=== PATIENT | female | born 1940 | race Caucasian/White ===

== ENCOUNTER 2016-11-19 16:15 | Observation (INO) | payer MEDICARE, BC ==
--- NOTE | 2016-11-19 16:30 | ED Physician Documentation ---
General Adult - HISTORIAN Historian: patient - HPI Chief Complaint: General Adult Onset: hours Timing: still present Severity: mild Modifying Factors: none Context: no pricipitating factors noted. Quality: just does not feel right Further Comments: yes (Patient states that she was walking in [place] and started to feel dizzy and lightheaded. Has not felt well for most of the day. No previous history of heart problems. No SOB or dyspnea beyond baseline.) - ROS CONST: no problems. denies: fever - PAST HX Past History: COPD, other (seizure disorder) Surgeries/Procedures: cholecystectomy, hysterectomy, other (ORIF hip fx, pelvic fracture repair, multiple surgeries on RLE) Allergies/Adverse Reactions: Allergies Allergy/AdvReac Type Severity Reaction Status Date / Time adhesive Allergy Mild Rash Verified 11/19/16 17:00 Home Medications: Ambulatory Orders Medication Instructions Recorded Levothyroxine Sodium 150 mcg PO DAILY u2 04/02/13 Alprazolam [XANAX] 0.25 mg PO TID PRN 11/19/16 Hydrochlorothiazide [Hydrodiuril] 12.5 mg PO DAILY 11/19/16 - SOCIAL HX Smoking History: non-smoker, quit greater than 1 year (5 years ago) Alcohol Use: none Drug Use: none - FAMILY HX Family History: No - VITAL SIGNS Vital Signs: Vital Signs Temp Pulse Resp BP Pulse Ox 168/94 06/07/13 07:41 - REVIEWED ASSESSMENTS Nursing Assessment Reviewed: Yes Vitals Reviewed: Yes Progress - EKG/XRAY/CT Comments: A fib with RVR, mild ST depression V3-V5 General Adult Physical Exam - PHYSICAL EXAM GENERAL APPEARANCE: mild distress NECK: normal inspection, thyroid normal, supple. No: lymphadenopathy RESPIRATORY: no resp distress, chest non-tender, breath sounds normal. No: wheezes, rales CVS: equal pulses, tachycardia (150-160 appears to be A fib) ABDOMEN: soft, no organomegaly, normal bowel sounds, no abdominal bruit, no distension, non-tender BACK: normal inspection SKIN: warm/dry, normal color EXTREMITIES: non-tender, edema (trace) NEURO: oriented X3, mood/affect nml, cognition normal Discharge Clincal Impression: Atrial fibrillation with RVR Home Medications: Ambulatory Orders Levothyroxine Sodium 150 mcg PO DAILY u2 04/02/13 Alprazolam [XANAX] 0.25 mg PO TID PRN 11/19/16 Hydrochlorothiazide [Hydrodiuril] 12.5 mg PO DAILY 11/19/16 Condition: Stable Disposition: ADMITTED INPATIENT Decision to Admit: NO Date of Decison to Admit: 11/19/16 Decision Time: 20:56
[2016-11-19] MEDS ORDERED: DILTIAZEM HCL 25 MG/ 5ML VIAL ONE (16:31)
[2016-11-19] MEDS ORDERED: DILTIAZEM HCL 25 MG/ 5ML VIAL IVP ONE (16:33)
[2016-11-19] MEDS ORDERED: DILTIAZEM HCL 125 MG in 0.9 % SODIUM CHLORIDE 100 ML IV STA ×2 (16:48→21:27)
[2016-11-19] MEDS ORDERED: 0.9 % SODIUM CHLORIDE 100 ML IV ONE (16:50)
[2016-11-19] MEDS ORDERED: DILTIAZEM HCL 125 MG/25ML VIAL ONE (16:50)
[2016-11-19 16:55] LABS: BASOPHILS % 0.3 (0.0-1.5); EOSINOPHILS % 3.9 % (0.0-6.8); MEAN CORPUSCULAR HEMOGLOBIN 30.5 pg (28.0-34.0); MEAN CORPUSCULAR VOLUME 93.6 fl (80.0-100.0); MONOCYTES % 7.8 % (0.0-11.0); NEUTROPHILS # 3.3 # k/uL (1.4-7.7)
[2016-11-19 17:06] LABS: eGFR (African) > 60; eGFR (Non-African) > 60
[2016-11-19] MEDS ORDERED: 0.9 % SODIUM CHLORIDE 1,000 ML IV ONE (17:47)
[2016-11-19] MEDS: 0.9 % SODIUM CHLORIDE 1,000 ML IV SCH (17:57)
--- NOTE | 2016-11-19 20:08 | Diagnostic Imaging Report ---
CABRERA RM [facility] [address] [facility].[address] [address] Report Submission Date: Nov 19, 2016 5:32:55 PM CDT Patient Study Name: PASCUAL PEREZ Date: Nov 19, 2016 5:08:23 PM CDT Modality Type: CR Gender: F Description: CHEST : 38 Institution: [facility] Physician: CABRERA RM Chest 2 views History: Tachycardia Findings: Multiple thoracic compression deformities and a midthoracic vertebroplasty are observed. The lungs are hyperinflated. Mild right mid lobe infiltrate or atelectasis is present, of uncertain chronicity. Heart size is normal. No pleural effusions are observed. Impression: 1. Mild right mid lobe infiltrate vs atelectasis of uncertain chronicity. 2. Hyperinflation. 3. Multiple thoracic compression deformities. Electronically signed on Nov 19, 2016 5:32:55 PM CDT by: Alfredo FARAH
--- NOTE | 2016-11-19 20:11 | Diagnostic Imaging Report ---
CABRERA RM [facility] [address] [facility].[address] [id number] Report Submission Date: Nov 19, 2016 7:35:26 PM CDT Patient Study Name: PASCUAL PEREZ Date: Nov 19, 2016 7:04:15 PM CDT Modality Type: CT\SR Gender: F Description: CT ANGIOGRAPHY CHEST 7 : 39 Institution: [facility] Physician: CABRERA RM CT angiography of the chest History: Elevated d-dimer and tachycardia Findings: Transverse chest sections are obtained after 94 mL intravenous omnipaque 350 from which multiplanar 3 dimensional maximum intensity projections are obtained. The pulmonary arteries are patent without acute pulmonary embolism. Mild atherosclerosis is observed. The distal descending aorta measures 3.4 cm in diameter. Calcified granulomas are noted. Heart size is normal. Moderate emphysema is present without infiltrate or pleural effusion. Numerous mild thoracolumbar compression deformities are present. T6 vertebroplasty is noted. Impression: 1. No evidence of acute pulmonary embolism. 2. Emphysema, numerous chronic appearing thoracolumbar compression deformities, T6 vertebroplasty, and old granulomatous disease noted. Electronically signed on Nov 19, 2016 7:35:26 PM CDT by: Alfredo FARAH
[2016-11-19] MEDS ORDERED: ALPRAZOLAM 0.5 MG TABLET PO PRN (21:11)
[2016-11-19] MEDS ORDERED: ALBUTEROL IH SCH (21:15)
--- NOTE | 2016-11-19 21:18 | History and Physical Report ---
History of Present Illnes - History of Present Illness Reason for Visit: Weakness History of Present Illness: Patient was in [place] today when she started "feeling funny." Couldn't put a finger on what was wrong so came to ER. Found to be in Afib with RVR. Reports her BP has been elevated up to 190/[address] Woodard put her on a new BP Med ( ? HCtZ). BP dropped to 100's. Has had several episodes in past few weeks of feeling light headed. Did not check BP. No CP with this episode. Reports no change in her chronic SOB. Has been feeling good otherwise. 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 Vertebuloplasty x 2) - Past Family History Mother Family History: CVA, Father Family History: , Other (alcohol addiction) Sister 1 Family History: Other (Afib) - Past Social History Smoke: Quit (2011 after 55 years of smoking) Alcohol: None Drugs: None Lives: Alone - Health Maintenance Health Maintenance: Cholesterol, Pneumococcal Vaccine. denies: Influenza Vaccine Influenza Vaccine: No (refuses these.) Pneumonia Vaccine: Yes Resuscitation Status: Resusciation Status Resuscitation Status Full Code Review of Systems - Review of Systems Constitutional: Weakness. negative: Fever Eyes: negative: pain ENT: negative: Ear Pain, Nose Discharge Respiratory: Shortness of Breath. negative: Cough Cardiovascular: Light Headedness. negative: Chest Pain, Palpitations, Orthopnea , Paroxysmal Noc. Dyspnea, Edema Gastrointestinal: negative: Nausea, Vomiting, Abdominal Pain, Diarrhea, Constipation Genitourinary: negative: Dysuria, Frequency Musculoskeletal: negative: Neck Pain Skin: negative: Rash Neurological: Weakness - Medications/Allergies Allergies/Adverse Reactions: Allergies Allergy/AdvReac Type Severity Reaction Status Date / Time adhesive Allergy Mild Rash Verified 11/19/16 17:00 Home Medications: Home Medications Alprazolam [XANAX] 0.25 mg PO TID PRN 11/19/16 Hydrochlorothiazide [Hydrodiuril] 12.5 mg PO DAILY 11/19/16 Current Inpatient Medications: Current Inpatient Medications Alprazolam (Xanax) 0.25 mg PO TID PRN PRN Reason: Anxiety Stop: 12/03/16 21:10 Enoxaparin Sodium (Lovenox) 40 mg SQ QD MICHAEL Stop: 12/03/16 21:59 Famotidine (Pepcid) 20 mg PO 717 MICHAEL Diltiazem HCl 125 mg/ Sodium (Chloride) 125 mls @ 10 mls/hr IV 1T STA PRN Reason: Protocol Stop: 11/20/16 05:17 Last Admin: 11/19/16 16:55 Dose: 10 ml/hr, 10 mls/hr Sodium Chloride (Normal Saline) 1,000 mls @ 100 mls/hr IV .Q10H MICHAEL Last Admin: 11/19/16 17:57 Dose: 100 mls/hr Levothyroxine Sodium (Synthroid) 100 mcg PO 0700 MICHAEL Levothyroxine Sodium (Synthroid) 50 mcg PO 0700 [facility] Miscellaneous (Hydrochlorothiazide [Hydrodiuril]) 12.5 mg PO DAILY MICHAEL Phenytoin Sodium (Dilantin) 300 mg PO DAILY [facility] Exam - Exam General: Alert, Oriented to Person, Oriented to Place, Oriented to Time, Cooperative, No acute distress HEENT: Atraumatic, PERRLA, EOMI, Mouth Mucous membr. moist/Mark Neck: Normal Range of Motion Lungs: Clear to auscultation, Normal air movement, Speaks full Sentences Cardiovascular: Regular rate, PVC Abdomen: Normal bowel sounds, Soft, No tenderness Integumentary: Normal Extremities: No edema Neurological: Normal gait, Normal speech, Strength Equal Bilat Psych/Mental Status: Mental status NL, Mood NL, Appropriate Affect, Intact Judgment Assessment/Plan - Assessment/Plan (1) Hypertension Status: Acute Current Visit: Yes Qualifiers: Hypertension type: essential hypertension Qualified Code(s): I10 - Essential (primary) hypertension Plan: Will hold HCTZ at this time as we plan to do Cardizem. (2) Afib Status: Acute Current Visit: Yes Qualifiers: Atrial fibrillation type: unspecified Qualified Code(s): I48.91 - Unspecified atrial fibrillation Plan: Patient started on diltiazem drip in ER. She has converted to NSR with rate in the 70's. Will give cardizem CD 120 mg po and decrease rate to 5 ml/hr. Plan to titrate off in several hours if tolerated. [id number] score is 2 which should be anticoagulated. Patient considering Xarelto/Eliquis. Will discuss more in the morning. Plan cardiology consult with ECHO as outpatient. (3) Chronic obstructive lung disease Status: Chronic Current Visit: No (4) Gastroesophageal reflux disease Status: Chronic Current Visit: No Plan: Patient normally doesn't take ranitidine but resolves GERD with saltine. Will do H2 jonathan here. (5) Hypothyroidism Status: Chronic Current Visit: No Plan: TSH pending but patient reports recent labs ok. However the only TSH I can find is from 02/26 and was 0.008. VTE Assessment - RISK FACTOR SCORE VTE RISK FACTOR SCORES: AGE OVER 60 YEARS, ANTICIPATED BED CONFINEMENT OR IMMOBILIZATION > 24 HOURS - RISK VTE MODERATE RISK: SCORE OF 2 (RISK PROXIMAL DVT 2-4%) PROPHYAXIS NEEDED
[2016-11-19 21:43] VITALS: BMI 25.7
[2016-11-19] MEDS ORDERED: ENOXAPARIN SODIUM 40 MG/0.4 ML DISP.SYRIN SQ SCH (22:00)
[2016-11-19] MEDS ORDERED: ENOXAPARIN SODIUM 40 MG/0.4 ML DISP.SYRIN SQ ONE (23:25)
[2016-11-20] MEDS ORDERED: 0.9 % SODIUM CHLORIDE 1,000 ML IV ONE (02:38)
[2016-11-20] MEDS ORDERED: LEVOTHYROXINE SODIUM 25 MCG TABLET ONE (02:48)
[2016-11-20] MEDS ORDERED: DILTIAZEM HCL 120 MG CAP.ER.24H ONE (02:49)
[2016-11-20] MEDS ORDERED: PHENYTOIN SODIUM EXTENDED 100 MG CAPSULE PO ONE (02:49)
[2016-11-20] MEDS ORDERED: FAMOTIDINE 20 MG TABLET ONE (02:49)
[2016-11-20] MEDS ORDERED: LEVOTHYROXINE SODIUM 100 MCG TABLET PO ONE (02:50)
[2016-11-20] MEDS: 0.9 % SODIUM CHLORIDE 1,000 ML IV SCH (03:12)
[2016-11-20 05:23] LABS: APPEARANCE,URINE CLEAR (CLEAR); COLOR,URINE YELLOW (YELLOW); OCCULT BLOOD,URINE NEGATIVE (NEGATIVE); UROBILINOGEN URINE 0.2 Eu (0.2-1.0)
[2016-11-20] MEDS ORDERED: LEVOTHYROXINE SODIUM 25 MCG TABLET PO SCH (07:00)
[2016-11-20] MEDS ORDERED: LEVOTHYROXINE SODIUM 100 MCG TABLET PO SCH (07:00)
[2016-11-20] MEDS ORDERED: FAMOTIDINE 20 MG TABLET PO SCH (07:00)
[2016-11-20] MEDS ORDERED: DILTIAZEM HCL 120 MG CAP.ER.24H PO SCH (09:00)
[2016-11-20] MEDS ORDERED: HYDROCHLOROTHIAZIDE 12.5 MG PO SCH (09:00)
[2016-11-20] MEDS ORDERED: PHENYTOIN SODIUM EXTENDED 100 MG CAPSULE PO SCH (09:00)
[2016-11-20 10:50] VITALS: BP 143/82
[2016-11-20] MEDS ORDERED: LEVALBUTEROL HCL 1.25 MG/3 ML AMPUL.NEB NEB ONE ×2 (11:02→11:09)
--- NOTE | 2016-11-20 11:53 | Discharge Summary ---
Discharge Summary - Discharge Sumary History of Present Illness: Patient was in [place] today when she started "feeling funny." Couldn't put a finger on what was wrong so came to ER. Found to be in Afib with RVR. Reports her BP has been elevated up to 190/[address] Woodard put her on a new BP Med ( ? HCtZ). BP dropped to 100's. Has had several episodes in past few weeks of feeling light headed. Did not check BP. No CP with this episode. Reports no change in her chronic SOB. Has been feeling good otherwise. Condition at Discharge: Stable Home Medications: Ambulatory Orders Medication Instructions Recorded Levothyroxine Sodium 150 mcg PO DAILY u2 04/02/13 Alprazolam [XANAX] 0.25 mg PO TID PRN 11/19/16 Diltiazem HCl [Cardizem CD] 120 mg PO DAILY #30 cap.er.24h 11/20/16 Consultations this Visit: None Procedures this Visit: None Allergies/Adverse Reactions: Allergies Allergy/AdvReac Type Severity Reaction Status Date / Time adhesive Allergy Mild Rash Verified 11/19/16 17:00 Patient Problems: Current Active Problems Problem Status Onset Afib Acute Atrial fibrillation with RVR Acute Hypertension Acute Discharge Summary: Patient presented to ER with Afib and RVR. Converted to NSR and normal rate with IV diltiazem. Came to the floor at 10ml drip. This was reduced to 5ml and cardizem CD 120 mg po started. Within 3 hours, HR still in the 60's so diltiazem drip was stopped. Patient remained overnight in NSR and rate in the 60's. HCTZ has been stopped. Patient to f/u with PCP, Dr. Woodard tomorrow to discuss cardiology consult and anticoagulation. CHADS2-VASC score of 2 so anticoagulation recommended. She was given a sample of Xarelto 20 mg to take daily with largest meal until sees PCP to see what her insurance will cover. She was given xopenex HFN for COPD while in hospital. Will discuss with PCP about changing to this as the albuterol at home makes her anxious and now with the Afib and RVR her insurance may cover it. Discharged home in good condition. Hospital Course: Discharge Dx: New onset Afib with RVR. HTN. COPD. Disposition - home
== END 2016-11-20 13:10 | disposition home or self-care (01) ==
LOC: ED 16:15 → EDSTATUS 16:18 → SOUTH 20:45
PROVIDERS: ADMIT Family Medicine; ATTEND Family Medicine
DX: I48.91 Unspecified atrial fibrillation (principal); I10 Essential (primary) hypertension; J44.9 Chronic obstructive pulmonary disease, unspecified
CPT/HCPCS: 71020; 71275; 80053; 80185; 81002; 84443; 84484; 85025; 85379; 93005; G0378; J1650; J3490; J7030; J7614; Q9966; 96361; 96374; 96376; 99284; S1016

== ENCOUNTER 2018-09-19 14:40 | Outpatient (CLI) | payer MEDICARE, BC ==
[2018-09-19 15:53] LABS: BASOPHILS % 0.3 (0.0-1.5); EOSINOPHILS % 2.6 % (0.0-6.8); MEAN CORPUSCULAR HEMOGLOBIN 30.8 pg (28.0-34.0); MONOCYTES % 6.4 % (0.0-11.0)
[2018-09-19 15:54] LABS: NEUTROPHILS # 4.4 # k/uL (1.4-7.7)
[2018-09-19 16:00] LABS: eGFR (Non-African) > 60
[2018-09-19 16:01] LABS: APPEARANCE,URINE CLOUDY (CLEAR); COLOR,URINE YELLOW (YELLOW); OCCULT BLOOD,URINE TRACE-LYSED (NEGATIVE); PH URINE 5.5 (5.0 - 8.0); UROBILINOGEN URINE 0.2 Eu (0.2-1.0)
== END 2018-09-19 14:42 ==
LOC: LAB 14:40
PROVIDERS: ATTEND Family Medicine
DX: A41.02 Sepsis due to Methicillin resistant Staphylococcus aureus (principal); J96.21 Acute and chronic respiratory failure with hypoxia; F41.9 Anxiety disorder, unspecified; R41.0 Disorientation, unspecified; J18.9 Pneumonia, unspecified organism; I48.0 Paroxysmal atrial fibrillation; N39.0 Urinary tract infection, site not specified; E03.9 Hypothyroidism, unspecified
CPT/HCPCS: 36415; 80053; 81002; 84439; 84443; 84481; 85025; 87086

== ENCOUNTER 2019-05-09 07:35 | Outpatient (CLI) | payer MEDICARE, BC | END 2019-05-09 07:38 | LOC: LAB 07:35 | PROVIDERS: ATTEND Family Medicine | DX: Z79.01 Long term (current) use of anticoagulants (principal); Z51.81 Encounter for therapeutic drug level monitoring | CPT/HCPCS: 36415; 80185; 85610; P9603 ==

== ENCOUNTER 2019-05-13 11:34 | Outpatient (CLI) | payer MEDICARE, BC | END 2019-05-13 11:36 | LOC: LAB 11:34 | PROVIDERS: ATTEND Family Medicine | DX: Z79.01 Long term (current) use of anticoagulants (principal); Z51.81 Encounter for therapeutic drug level monitoring | CPT/HCPCS: 36415; 85610; P9603 ==

== ENCOUNTER 2019-05-18 07:25 | Outpatient (CLI) | payer MEDICARE, BC | END 2019-05-18 07:35 | LOC: LAB 07:25 | PROVIDERS: ATTEND Family Medicine | DX: Z51.81 Encounter for therapeutic drug level monitoring (principal); Z79.01 Long term (current) use of anticoagulants | CPT/HCPCS: 85610 ==

== ENCOUNTER 2019-05-21 08:00 | Outpatient (CLI) | payer MEDICARE, BC | END 2019-05-21 08:15 | LOC: LAB 08:00 | PROVIDERS: ATTEND Family Medicine | DX: J44.9 Chronic obstructive pulmonary disease, unspecified (principal); I10 Essential (primary) hypertension; E03.9 Hypothyroidism, unspecified | CPT/HCPCS: 36415; 85610; P9603 ==

== ENCOUNTER 2019-05-24 09:00 | Outpatient (CLI) | payer MEDICARE, BC | END 2019-05-24 09:04 | LOC: LAB 09:00 | PROVIDERS: ATTEND Family Medicine | DX: Z51.81 Encounter for therapeutic drug level monitoring (principal); Z79.01 Long term (current) use of anticoagulants | CPT/HCPCS: 36415; 85610; P9603 ==

== ENCOUNTER 2019-05-27 14:22 | Outpatient (CLI) | payer MEDICARE, BC | END 2019-05-27 14:27 | LOC: LAB 14:22 | PROVIDERS: ATTEND Family Medicine | DX: Z79.01 Long term (current) use of anticoagulants (principal); Z51.81 Encounter for therapeutic drug level monitoring | CPT/HCPCS: 36415; 85610; P9603 ==

== ENCOUNTER 2019-06-03 12:49 | Outpatient (CLI) | payer MEDICARE, BC ==
[2019-06-03 13:06] LABS: BASOPHILS % 0.5 % (0.0-1.5); NEUTROPHILS # 7.3 # k/uL (1.4-7.7)
== END 2019-06-03 12:54 ==
LOC: LAB 12:49
PROVIDERS: ATTEND Family Medicine
DX: Z51.81 Encounter for therapeutic drug level monitoring (principal); Z79.01 Long term (current) use of anticoagulants; I10 Essential (primary) hypertension; J44.9 Chronic obstructive pulmonary disease, unspecified
CPT/HCPCS: 36415; 80185; 85025; 85610; P9603

== ENCOUNTER 2019-06-07 13:48 | Outpatient (CLI) | payer MEDICARE, BC ==
[2019-06-07 15:18] LABS: BASOPHILS % 0.5 % (0.0-1.5); NEUTROPHILS # 5.4 # k/uL (1.4-7.7)
== END 2019-06-07 13:53 ==
LOC: LAB 13:48
PROVIDERS: ATTEND Family Medicine
DX: Z79.01 Long term (current) use of anticoagulants (principal); Z51.81 Encounter for therapeutic drug level monitoring; I10 Essential (primary) hypertension; J44.9 Chronic obstructive pulmonary disease, unspecified
CPT/HCPCS: 36415; 80185; 82270; 85025; 85610

== ENCOUNTER 2019-06-10 09:58 | Outpatient (CLI) | payer MEDICARE, BC ==
[2019-06-10 11:09] LABS: BASOPHILS % 0.4 % (0.0-1.5); NEUTROPHILS # 4.3 # k/uL (1.4-7.7)
== END 2019-06-10 10:04 ==
LOC: LAB 09:58
PROVIDERS: ATTEND Family Medicine
DX: Z51.81 Encounter for therapeutic drug level monitoring (principal); Z79.01 Long term (current) use of anticoagulants
CPT/HCPCS: 36415; 85025; 85610; 85730; P9603

== ENCOUNTER 2019-06-21 08:10 | Outpatient (CLI) | payer MEDICARE, BC | END 2019-06-21 08:15 | LOC: LAB 08:10 | PROVIDERS: ATTEND Family Medicine | DX: I48.91 Unspecified atrial fibrillation (principal) | CPT/HCPCS: 36415; 85610; P9603 ==

== ENCOUNTER 2019-06-25 07:55 | Outpatient (CLI) | payer MEDICARE, BC | END 2019-06-25 08:00 | LOC: LAB 07:55 | PROVIDERS: ATTEND Family Medicine | DX: A41.02 Sepsis due to Methicillin resistant Staphylococcus aureus (principal); E43 Unspecified severe protein-calorie malnutrition; Z96.651 Presence of right artificial knee joint | CPT/HCPCS: 36415; 85610; P9603 ==

== ENCOUNTER 2019-07-12 09:00 | Outpatient (CLI) | payer MEDICARE, BC | END 2019-07-12 09:05 | LOC: LAB 09:00 | PROVIDERS: ATTEND Family Medicine | DX: I48.91 Unspecified atrial fibrillation (principal); J44.9 Chronic obstructive pulmonary disease, unspecified; Z47.1 Aftercare following joint replacement surgery; Z96.641 Presence of right artificial hip joint | CPT/HCPCS: 85610 ==

== ENCOUNTER 2019-07-16 11:42 | Outpatient (CLI) | payer MEDICARE, BC | END 2019-07-16 11:47 | LOC: LAB 11:42 | PROVIDERS: ATTEND Family Medicine | DX: I48.91 Unspecified atrial fibrillation (principal) | CPT/HCPCS: 36415; 85610 ==